=== PATIENT | female | born 1965 | race Caucasian/White ===

== ENCOUNTER 2024-04-17 14:41 | Emergency (ER) | payer BC, MEDICAID | END 2024-04-17 16:28 | disposition home or self-care (01) | LOC: MADERS 14:41 | DX: J06.9 Acute upper respiratory infection, unspecified (principal); R05.9 Cough, unspecified; I11.0 Hypertensive heart disease with heart failure; I50.9 Heart failure, unspecified; E03.9 Hypothyroidism, unspecified; F17.210 Nicotine dependence, cigarettes, uncomplicated; Z79.899 Other long term (current) drug therapy; Z79.82 Long term (current) use of aspirin | CPT/HCPCS: 71046 ==

== ENCOUNTER 2025-03-09 20:56 | Emergency (ER) | payer MEDICAID ==
[2025-03-09 21:14] LABS: #Basophils 0.1 thou/uL (0.0-0.2); #Eosinophils 0.4 thou/uL (0.0-0.7); #Lymphocytes 3.0 thou/uL (1.20-3.40); #Monocytes 0.7 thou/uL (0.11-0.59); #Neutrophils 5.1 thou/uL (1.40-6.50); %Basophils 1.4 % (0.0-1.0); %Eosinophils 4.4 % (0.0-10.0); %Lymphocytes 31.8 % (21.0-51.0); %Monocytes 7.1 % (0.0-10.0); %Neutrophils 55.3 % (42.0-75.0); Hematocrit 44.6 % (36.0-47.0); Hemoglobin 14.7 g/dL (12.0-16.0); Mean Corpuscular Hemoglobin 30.1 pg (27.0-31.0); Mean Corpuscular Volume 91.5 fl (78.0-98.0); Platelet Count 317 10x3/uL (130-400); Red Blood Cell (RBC) Count 4.88 mill/uL (4.20-5.40); White Blood Cell (WBC) Count 9.3 10x3/uL (4.8-10.8)
[2025-03-09] MEDS ORDERED: Aspirin Chewable 81 MG TAB ONE (21:31)
[2025-03-09 21:33] LABS: Troponin I Less than 0.010 ng/mL (< 0.028)
[2025-03-09 21:34] LABS: ALT (SGPT) 18 U/L (Less than 34); AST (SGOT) 34 U/L (11-34); Albumin 4.2 g/dL (3.1-4.5); Alkaline Phosphatase 57 U/L (40-110); Anion Gap 16 mmol/L (10-20); BUN (Urea Nitrogen) 13 mg/dL (9.8-20.1); Bilirubin, Total 0.2 mg/dL (0.3-1.2); Calc. Creatinine Clearance 0 mL/min (70-130); Calcium 9.6 mg/dL (7.8-10.44); Carbon Dioxide 23 mmol/L (22-29); Chloride 105 mmol/L (98-107); Globulin 3.1 g/dL (2.4-3.5); Glucose 90 mg/dL (70-105); Potassium 4.0 mmol/L (3.5-5.1); Sodium 140 mmol/L (136-145)
[2025-03-09 21:53] LABS: INR-International Normal Ratio 1.0; Prothrombin Time 12.8 sec (12.0-14.7)
[2025-03-09 21:54] LABS: PTT 29.0 sec (22.9-36.1)
[2025-03-09] MEDS ORDERED: Enoxaparin 80 MG (0.8 mL) SYRINGE ONE (22:06)
[2025-03-10 00:31] LABS: Troponin I Less than 0.010 ng/mL (< 0.028)
== END 2025-03-10 00:10 | disposition short-term general hospital (02) ==
LOC: MADERS 20:56
DX: I20.0 Unstable angina (principal); I11.0 Hypertensive heart disease with heart failure; I50.9 Heart failure, unspecified; E78.5 Hyperlipidemia, unspecified; E03.9 Hypothyroidism, unspecified; F17.210 Nicotine dependence, cigarettes, uncomplicated; Z95.5 Presence of coronary angioplasty implant and graft
CPT/HCPCS: 71045; 80053; 83880; 84484; 85025; 85610; 85730; 93005; 96372; 96374; J1650